=== PATIENT | male | born 1970 | race Caucasian/White ===

== ENCOUNTER 2018-03-29 13:09 | Emergency (ER) | payer SELFPAY ==
[~2018-03-29] VITALS: Ht 167.6 cm; Wt 77.1 kg
[2018-03-29 13:09] VITALS: BP 119/77
[2018-03-29] MEDS ORDERED: ACETAMINOPHEN 650 MG/20.3 ML UDC PO ONE (14:00)
[2018-03-29] MEDS ORDERED: ACETAMINOPHEN 325 MG TABLET ONE (14:06)
== END 2018-03-29 14:30 | disposition home or self-care (01) ==
LOC: ER 13:11
DX: G44.209 Tension-type headache, unspecified, not intractable (principal); K08.89 Other specified disorders of teeth and supporting structures; F17.210 Nicotine dependence, cigarettes, uncomplicated
CPT/HCPCS: A4606; Z7610